=== PATIENT | male | born 1940 | race Caucasian/White ===

== ENCOUNTER 2017-04-15 10:36 | Outpatient (CLI) | payer MEDICARE, OTHER ==
[~2017-04-15] VITALS: Ht 175.3 cm; Wt 81.8 kg
--- NOTE | ~2017-04-15 | HEMODYNAMI ---
PATIENT:RADHA SOLITARIO MEDICAL RECORD: [id number] : 38 LOCATION:[facility] ADMISSION DATE: 04/15/17 Generatedon:04/15/201714:23 Patient name: RADHA SOLITARIO Patient #: [id number] SSN: : Date of study: 04/15/2017 Page: Of Hemodynamic Procedure Report Patient Data Patient Demographics Procedure consent was obtained First Name: RADHA Gender: Male Last Name: KASSI : 1940 [facility] Initial: BABAK Age: 77 year(s) Patient #: [id number] Race: Unknown Additional ID: [id number] Contact details [address]: [address] [place] [address] State: [place] City: [place] Zip code: [address] Past Medical History Allergies Allergen Reaction Date Comments Reported Other allergy 04/15/2017 Iodine Admission Admission Data Admission Date: 04/15/2017 Admission Time: 10:36 Admit Source: Other Lab Results Lab Result Date: 04/15/2017 Lab Result Time: 11:20 Biochemistry Name Units Result Min Max BUN mg/dl 22 --(----)-* 7 18 Creatinine mg/dl 2 --(----)-* 0.6 1.3 CBC Name Units Result Min Max Hematocrit % 46.1 --(-*--)-- 42 54 Hemoglobin g/dl 15.7 --(--*-)-- 13.5 17.5 Procedure Procedure Types Cath Procedure Diagnostic Procedure C LH w/Coronaries PCI Procedure Coronary Stent Coronary Stent Initial Miscellaneous Procedures Moderate Sedation up to 45 minutes Procedure Description Procedure Date Procedure Date: 04/15/2017 Procedure Start Time: 13:45 Procedure End Time: 14:18 Procedure Staff Name Function Steven Hoffmann MD Performing Physician Tam Myers RT Monitor Seda Enamorado RT Scrub Gabriel Mcneill RN Nurse Procedure Data Cath Procedure Fluoroscopy Diagnostic fluoroscopy Total fluoroscopy Time: 8.8 time: 8.8 min min Diagnostic fluoroscopy Total fluoroscopy dose: 800 dose: 800 mGy mGy Contrast Material Contrast Material Type Amount (ml) Isovue 300 133 Entry Location Entry Primary Successful Side Size Upsize Upsize Entry Closure Mendes ccessful Closure Location (Fr) 1 (Fr) 2 (Fr) Remarks Device Remarks Radial Right Mechanical artery Compression Femoral Right 5 Fr 6 Fr Exoseal artery Short Estimated blood loss: 10 ml Diagnostic catheters Device Type Used For End Catheter Placement DIAGNOSTIC Jayden 110cm Procedure 5Fr catheter ([id number]) MULTIPACK JL 4.0 5Fr Procedure catheter DIAGNOSTIC JL 5 5Fr Procedure catheter ([id number]) MULTIPACK 3DRC 5Fr Procedure catheter MULTIPACK Pigtail 5 Fr Procedure catheter Procedure Complications No complications Procedure Medications Medication Administration Route Dosage 0.9% NaCl I.V. 150 ml/hr Oxygen NC 2 l/min Heparin Flush Bag added to field 2 bags (1000units/500ml NS) Lidocaine 2% added to field 20 Versed I.V. 2 mg Fentanyl I.V. 100 mcg Radial Cocktail added to field 1 syringe (Verapomil 2mg/Nitro 400mcg/Heparin 1500units) Radial Cocktail I.A. 1 syringe (Verapomil 2mg/Nitro 400mcg/Heparin 1500units) Heparin Bolus I.V. 8200 units Plavix P.O. 600 mg Hemodynamics Rest HGB: 15.7 (g/dl) Heart Rate: 82 (bpm) Pressure Samples Time Site Value (mmHg) Purpose Heart Use Rate(bpm) 14:02 AO 172/95(127) Snapshot 81 Snapshots Pre Cath Intra NCS Post Cath Vital Signs Time Heart Resp SPO2 etCO2 NIBP (mmHg) Rhythm Pain Sedation Rate (ipm) (%) (mmHg) Status Level (bpm) 13:33:45 81 16 99 25.4 185/110(160) NSR 0 (11) 10(A) , No pain 13:38:38 81 15 99 25.4 190/105(162) NSR 0 (11) 10(A) , No pain 13:43:31 69 15 99 26.2 189/106(165) NSR 0 (11) 10(A) , No pain 13:48:16 69 13 98 28.4 142/85(115) NSR 0 (11) 10(A) , No pain 13:52:58 69 16 94 17.2 138/85(103) NSR 0 (11) 9(A) , No pain 13:57:41 78 14 95 23.2 139/90(118) NSR 0 (11) 9(A) , No pain 14:02:21 78 14 94 28.4 141/95(120) NSR 0 (11) 9(A) , No pain 14:07:04 69 16 95 29.2 146/82(131) NSR 0 (11) 9(A) , No pain 14:11:49 69 15 95 17.2 158/94(142) NSR 0 (11) 9(A) , No pain 14:16:36 69 15 97 26.2 143/90(125) NSR 0 (11) 9(A) , No pain Medications Time Medication Route Dose Verified Delivered Reason Note s Effectiveness by by 13:31:31 0.9% NaCl I.V. 150 Gabriel Gabriel Per physician ml/hr Osito Mcneill RN RN 13:31:44 Oxygen NC 2 l/min Gabriel Gabriel Per physician Osito Mcneill RN RN 13:32:18 Heparin Flush added 2 bags Gabriel Gabriel used for Bag to Osito Mcneill procedure (1000units/500ml RN RN NS) 13:32:34 Lidocaine 2% added 20ml Gabriel Gabriel for local to vial Osito Mcneill anesthetic RN RN 13:44:55 Versed I.V. 2 mg Gabriel Gabriel for sedation Osito Mcneill RN RN 13:45:04 Fentanyl I.V. 100 mcg Gabriel Gabriel for sedation Osito Mcneill RN RN 13:45:33 Radial Cocktail added 1 Gabriel Gabriel for (Verapomil to syringe Osito Mcneill vasodilation 2mg/Nitro RN RN 400mcg/Heparin 1500units) 13:47:46 Radial Cocktail I.A. 1 Gabriel Steven for (Verapomil syringe Osito Hoffmann MD vasodilation 2mg/Nitro RN 400mcg/Heparin 1500units) 14:09:16 Heparin Bolus I.V. 8,200 Gabriel Gabriel for units Osito Mcneill anticoagulation RN RN 14:20:18 Plavix P.O. 600 mg Gabriel Gabriel for Osito Mcneill antiplatelet RN RN therapy Procedure Log Time Note 12:54:30 Informed consent obtained and on chart 12:54:35 Admit Source: Other 12:54:59 Diagnostic Cath status Elective 12:55:20 Time tracking: Regular hours 12:55:30 Plan of Care:Hemodynamics will remain stable., Cardiac rhythm will remain stable., Comfort level will be maintained., Respiratory function will remain adequate., Patient/ family verbilizes understanding of procedure., Procedure tolerated without complication., Recovers from procedure without complications.. 12:55:43 H&P Date Dictated: 04/02/2017 Within 30 days and on chart., H&P Addendum completed by physician on day of procedure. (MUST COMPLETE FOR ALL OUTPATIENTS). 13:15:01 Seda Counts RT(R) sent for patient. Start room use. 13:18:40 Lab Result : Hemoglobin 15.7 g/dl 13:18:40 Lab Result : Creatinine 2 mg/dl 13:18:40 Lab Result : BUN 22 mg/dl 13:18:40 Lab Result : Hematocrit 46.1 % 13:23:02 Patient received from Pre/Post Procedure Room to CCL 1 Alert and oriented. Tansferred to table in Supine position. 13:23:03 Warm blankets applied, and panchito hugger turned on for patient comfort. 13:23:04 Correct patient and procedure confirmed by team. 13:23:05 ECG and BP/O2 sat monitors applied to patient. 13:23:06 Pre-procedure instructions explained to patient. 13:23:07 Pre-op teaching completed and patient verbalized understanding. 13:23:13 Family in waiting room. 13:23:16 Patient NPO since Midnight. 13:23:34 Patient allergic to Other allergyIodine 13:31:31 0.9% NaCl 150 ml/hr I.V. was administered by Gabriel Mcneill RN; Per physician; 13:31:44 Oxygen 2 l/min NC was administered by Gabriel Mcneill RN; Per physician; 13:32:18 Heparin Flush Bag (1000units/500ml NS) 2 bags added to field was administered by Gabriel Mcneill RN; used for procedure; 13:32:34 Lidocaine 2% 20ml vial added to field was administered by Gabriel Mcneill RN; for local anesthetic; 13:32:46 Vital chart was started 13:39:12 Baseline sample Acquired. 13:39:21 Rhythm: paced 13:39:28 Is the patient allergic to Iodine/contrast media? Yes. 13:39:30 Is patient on blood thinner?No 13:39:31 Patient diabetic? Yes. 13:39:32 If diabetic: On Metformin? No 13:39:35 Previous problem with sedation/anesthesia? No ? 13:39:36 Snore? Yes 13:39:36 Sleep apnea? No 13:39:37 Deviated septum? No 13:39:38 Opens mouth fully? Yes 13:39:39 Sticks out tongue? Yes 13:39:41 Airway obstruction? No ? 13:39:43 Dentures? Yes in tight 13:39:47 Modified Abad's test Ulnar < 7 seconds 13:39:48 Patient pain scale 0/10 ?. 13:40:12 IV patent on arrival in left wrist with 0.9% NaCl at [facility]. 13:40:14 Lab results completed and on chart. 13:40:16 Right Radial & Right Groin area was prepped with chlora-prep and draped in sterile fashion 13:40:17 Alarms reviewed by R. N. 13:40:17 Sharps counted by scrub and verified by R.N. 13:40:20 Use device set Radial Dx 13:40:22 ACIST Syringe (90418) opened to sterile field. 13:40:23 ACIST Hand Control (78557) opened to sterile field. 13:40:24 ACIST Manifold (65759) opened to sterile field. 13:40:25 Tegaderm 4 x 4 (1626W) opened to sterile field. 13:40:27 Bag Decanter (2001S) opened to sterile field. 13:40:28 Medline Cath Pack ([id number]) opened to sterile field. 13:40:29 MBrace Wrist Support ([id number]) opened to sterile field. 13:40:32 SHEATH 6FR Slender ([id number]) opened to sterile field. 13:40:36 DIAGNOSTIC WIRE .035 260cm J wire (524451) opened to sterile field. 13:40:39 NEEDLE Cook 21G 4cm Radial (I83864) opened to sterile field. 13:40:41 TR BAND Standard (TNE98ATW) opened to sterile field. 13:40:48 Physician arrived 13:40:48 --------ALL STOP TIME OUT------ 13:40:52 Final Timeout: patient, procedure, and site verified with staff and physician. All members of the team are in agreement. 13:41:20 Right Radial & Right Groin site verified by team. 13:41:29 Physical assessment completed. ASA score P 2 - A patient with mild systemic disease as per Steven Hoffmann MD. 13:41:32 Sedation plan: IV Moderate Sedation Medication:Versed, Fentanyl 13:44:55 Versed 2 mg I.V. was administered by Gabriel Mcneill RN; for sedation; 13:45:04 Fentanyl 100 mcg I.V. was administered by Gabriel Mcneill RN; for sedation; 13:45:33 Radial Cocktail (Verapomil 2mg/Nitro 400mcg/Heparin 1500units) 1 syringe added to field was administered by Gabriel Mcneill RN; for vasodilation; 13:45:34 Procedure started. 13:45:34 Full Disclosure recording started 13:45:42 Local anesthetic to right radial artery with Lidocaine 2% by Steven Hoffmann MD.INITIAL ACCESS ONLY 13:47:04 A sheath was inserted into the Right Radial artery 13:47:46 Radial Cocktail (Verapomil 2mg/Nitro 400mcg/Heparin 1500units) 1 syringe I.A. was administered by Steven Hoffmann MD; for vasodilation; 13:48:00 A DIAGNOSTIC Jayden 110cm 5Fr catheter (520734) was advanced over the wire and used for Procedure. 13:50:29 Terumo Super Stiff Angled 260cm glide wire opened to sterile field. 13:50:53 Zero performed for pressure channel P1 13:51:59 glide wire advanced. 13:52:03 Wire removed. 13:52:57 Catheter removed. Moving to femoral approach. 13:53:12 Local anesthetic to right femoral artery with Lidocaine 2% by Steven Hoffmann MD.ADDITIONAL ACCESS 13:53:35 SHEATH 5FR [place] (SFN634) opened to sterile field. 13:53:49 A 5 Fr sheath was inserted into the Right Femoral artery 13:54:47 Use device set Multipack Set 13:54:51 DIAGNOSTIC Multipack 5Fr catheter set (UK5704) opened to sterile field. 13:54:55 A MULTIPACK JL 4.0 5Fr catheter was advanced over the wire and used for Procedure. 13:55:53 Catheter removed. unable to cannulate vessel. 13:56:06 A DIAGNOSTIC JL 5 5Fr catheter (801896G) was advanced over the wire and used for Procedure. 13:57:25 LCA angiography performed. 13:58:15 Catheter exchanged over wire. 13:58:23 A MULTIPACK 3DRC 5Fr catheter was advanced over the wire and used for Procedure. 13:59:45 RCA angiography performed. 14:00:48 Catheter exchanged over wire. 14:00:56 A MULTIPACK Pigtail 5 Fr catheter was advanced over the wire and used for Procedure. 14:02:27 Aortic Root visualized 14:03:22 GUIDE 6FR XBLAD 4.0 catheter ([id number]) opened to sterile field. 14:03:23 SHEATH 6FR [place] (HTH943) opened to sterile field. 14:03:27 INFLATOR Merit BasixCompak (OJ5719) opened to sterile field. 14:03:40 BMW 300cm [place] 2 J wire (2877563U) opened to sterile field. 14:06:33 TUBING High Pressure Extension Tubing ([employer]) (OI3833L) opened to sterile field. 14:07:09 Catheter removed. 14:07:20 GUIDE 6FR XBLAD 4.0 catheter (79146670) opened to sterile field. 14:07:50 Sheath upsized to a 6 Fr Short. 14:08:01 6 Fr xblad 3.5 guide catheter was inserted over the wire 14:09:01 bmw wire advanced. 14:09:16 Heparin Bolus 8,200 units I.V. was administered by Gabriel Mcneill RN; for anticoagulation; 14:09:31 Wire advanced across lesion. 14:13:12 Inflation Number: 1 A INTEGRITY OTW 3.5 X 18 stent ([id number]) was prepped and advanced across the Mid CX. The stent was deployed at 15 ADELA for 0:10 (min:sec). 14:15:01 Stent catheter was removed intact over wire. 14:15:02 Wire removed. 14:15:02 Guide catheter removed. 14:15:10 EXOSEAL 6Fr (EX600) opened to sterile field. 14:15:34 Sheath removed intact; hemostasis achieved with Exoseal to the Right Femoral artery. 14:15:41 Sheath removed intact; hemostasis achieved with Mechanical Compression to the Right Radial artery. 14:15:43 Procedure ended.(Physican Out) 14:15:54 Fluoroscopy time 08.80 minutes. 14:15:59 Fluoroscopy dose: 800 mGy 14:15:59 Flurop Dose total: 800 14:16:03 Contrast amount:Isovue 300 133ml. 14:16:04 Sharps counted by scrub and verified by R.N. 14:16:45 TR band inflated with 12cc of air. 14:16:47 Insertion/operative site no bleeding no hematoma. 14:16:50 Post-op/insertion site Right Femoral artery dressed using a 4 x 4 and Tegaderm. 14:16:54 Post right femoral artery:stable, soft, clean and dry 14:16:56 Post Procedure Pulses reassessed and unchanged 14:16:59 Post-procedure physical assessment completed. ASA score P 2 - A patient with mild systemic disease as per Steven Hoffmann MD. 14:17:02 Post procedure rhythm: unchanged. 14:17:07 Estimated blood loss: 10 ml 14:17:09 Post procedure instruction explained to patient.Patient verbalizes understanding. 14:17:19 Patient needs reinforcement of post procedure teaching. 14:17:49 Procedure type changed to Cath procedure, Diagnostic procedure, LHC, LHC w/Coronaries, PCI procedure, Coronary Stent, Coronary Stent Initial, Miscellaneous Procedures, Moderate Sedation up to 45 minutes 14:18:33 Procedure and supply charges have been captured, reviewed, submitted and are correct. 14:18:36 Procedure Complication : No complications 14:18:38 Vital chart was stopped 14:18:39 See physician's report for complete and final results. 14:18:40 Report given to Pre/Post Procedure Room. 14:18:43 Patient transfered to Pre/Post Procedure Room with Stretcher. 14:18:56 Procedure ended. 14:18:56 Full Disclosure recording stopped 14:19:15 End room use (Document Last) 14:20:18 Plavix 600 mg P.O. was administered by Gabriel Mcneill RN; for antiplatelet therapy; Intervention Summary Intervention Notes Time ActionType Lesion and Equipment Action# Pressure Duration Attributes Used 14:13:12 Place stent Mid CX INTEGRITY 1 15 00:10 OTW 3.5 X 18 stent ([id number]) Device Usage Item Name Manufacture Quantity Catalog Hospital Part Current Minima l Lot# / Number Charge Number Stock Stock Serial# Code ACIST Acist 1 27076 160277 495801 288164 20 Syringe Medical (13944) Systems Inc ACIST Hand Acist 1 01135 416855 644470 580603 5 Control Medical (47530) Systems Inc ACIST Acist 1 92125 110988 836043 840472 5 Manifold Medical (48915) Systems Inc Tegaderm 4 x 3M 1 1626W 823485 473723 994130 5 4 (1626W) Bag Decanter Microtek 1 2002S 774263 81243 437641 5 (2001S) Medical Inc. Medline Cath Cardinal 1 [id number] 773932 28873 596269 5 Union Cast Network Technology ([id number]) MBrace Wrist Advanced 1 140-0250-00 232325 00850 803450 5 Support Vascular (718573614) Dynamics SHEATH 6FR Terumo 1 [id number] 114106 420912 662097 40 Slender ([id number]) DIAGNOSTIC St Won 1 235494 096483 696311 129018 30 WIRE .035 260cm J wire (793457) NEEDLE Arch Therapeutics Medical 1 R40178 603211 682868 357313 5 21G 4cm Radial (N87942) TR BAND Terumo 1 JID89-OFE 800905 932917 651556 40 Standard ([id number]) DIAGNOSTIC Terumo 1 40-5023 835428 851420 316593 5 Jayden 110cm 5Fr catheter (846898) Terumo Super Terumo 1 WU4985 793982 474207 250137 5 Stiff Angled 260cm glide wire SHEATH 5FR Terumo 1 ERP805 822279 448455 505612 40 [place] (AKS648) DIAGNOSTIC Cardinal 1 LU6269 692296 91576 279260 30 Multipack Health 5Fr catheter set (YS6010) MULTIPACK JL Cardinal 1 306977 5 4.0 5Fr Health catheter DIAGNOSTIC Cardinal 1 065052H 282134 242544 316157 5 JL 5 5Fr Health catheter (906432E) MULTIPACK Cardinal 1 091358 5 3DRC 5Fr Health catheter MULTIPACK Cardinal 1 184140 5 Pigtail 5 Fr Health catheter GUIDE 6FR Cardinal 2 13675138 152652 476572 332785 3 XBLAD 4.0 Health catheter (13539271) SHEATH 6FR Terumo 1 YOJ951 024398 791455 670407 40 [place] (QQF322) INFLATOR Merit 1 SD3797 333916 849810 476567 15 Merit Medical BasixCompak (UF3333) BMW 300cm Butler 1 [id number] 173996 608097 606687 5 [place] 2 Vascular J wire (6721414J) TUBING High Merit 1 NP4149H 171491 46876 423700 10 Pressure Medical Extension Tubing (Hoffmann) (IL2026P) INTEGRITY Medtronic 1 [id number] 058339 357546 4 [id number] OTW 3.5 X 18 stent ([id number]) EXOSEAL 6Fr Cardinal 1 EX600 422861 652156 558206 10 (EX600) Health Signature Audit [place] Stage Time Signature Unsigned Intra-Procedure 04/15/2017 Tam Myers 2:23:23 PM RT(R) Signatures Monitor : Tam Myers RT Signature : Date : Time : [address] [address]
[2017-04-15] MEDS ORDERED: OMEPRAZOLE20 M1 PO (11:22)
[2017-04-15] MEDS ORDERED: ZOCOR10 MG PO (11:22)
[2017-04-15] MEDS ORDERED: VOLTAREN25 MG PO (11:23)
[2017-04-15] MEDS ORDERED: PLAQUENIL200 MG PO (11:23)
[2017-04-15] MEDS ORDERED: FLOMAX0.4 MG PO (11:23)
[2017-04-15] MEDS ORDERED: NEURONTIN 300300 MG PO (11:24)
[2017-04-15] MEDS ORDERED: GLIPIZIDE10 MG PO (11:24)
[2017-04-15 11:28] LABS: BASOPHILS 0.1 % (0-2); EOSINOPHILS 0.1 % (0-7); HEMATOCRIT 46.1 % (42.0-54.0); HEMOGLOBIN 15.7 g/dL (13.5-17.5); IMMATURE GRANULOCYTES 0.3 % (0-5); LYMPHOCYTES 9.8 % (15-50); MCH 31.7 pg (26.0-34.0); MCHC 34.1 g/dL (31.0-37.0); MCV 93.1 fL (80.0-100.0); MEAN PLATELET VOLUME 11.2 fL (7.4-10.4); NEUTROPHILS 87.7 % (40-80); PLATELET COUNT 177 10x3/uL (130-400); RBC 4.95 10x6/uL (4.20-6.10); RDW 12.9 % (11.5-14.5); WBC 11.8 10x3/uL (4.8-10.8)
[2017-04-15 11:31] VITALS: BP 176/93; Ht 175.3 cm; Wt 81.8 kg
[2017-04-15 11:46] LABS: ANION GAP 14.5 mmol/L (8-16); CALCIUM 9.5 mg/dL (8.5-10.1); CARBON DIOXIDE 23.7 mmol/L (21.0-32.0); POTASSIUM - SERUM 4.2 mmol/L (3.5-5.1)
--- NOTE | 2017-04-15 16:56 | NUR ---
1455 LYING FLAT, ROOM AIR WITH NO RESP DISTRESS. NSR RATE 70 W NO C/O CHEST PAIN. PULSES PALP X 4. R WRIST TR BAND C/D/I AND R GROIN 6F EXOSEAL C/D/I W NO HEMATOMA OR BLEEDING. 1630 R GROIN AND R WRIST REMAIN C/D/I W NO HEMATOMA OR BLEEDING. FAMILY AT SIDE.
--- NOTE | 2017-04-15 17:00 | NUR ---
1632 SBP GREATER THAN 180, CALLED DR. BRENNAN. T/O FOR CLONIDINE 0.1MG PO NOW. CLONIDINE GIVEN PER ORDER, WILL MONITOR R EFFECTIVENESS.
--- NOTE | 2017-04-15 17:51 | NUR ---
1730 ELEVATED HOB, WILL MONITOR R GROIN FOR BLEEDING. SITTING UP EATING TURKEY SANDWICH. VIODED 300CC VIA URINAL
--- NOTE | 2017-04-15 18:12 | NUR ---
PIV REMOVED FROM LEFT FOREARM WITH BANDAID APPLIED. 2CC AIR REMOVED FROM R WRIST TR BAND. UP TO BEDSIDE TO DRESS WITH ASSIST FROM .
--- NOTE | 2017-04-15 18:31 | NUR ---
TR BAND WEANED COMPLETELY. TEGADERM AND COTTON BALL APPLIED TO R WRIST. BRACE RE-APPLIED. R GROIN REMAINS C/D/I. DISCUSSED D/C INSTRUCTIONS WITH PATIENT AND DAUGHTER AT BEDSIDE. WHEELED OUT VIA WHEELCHAIR BY CATH TEAM.
== END 2017-04-15 18:33 | disposition home or self-care (01) ==
LOC: D.CATH 10:36
PROVIDERS: Internal Medicine Cardiovascular Disease
DX: I25.119 Atherosclerotic heart disease of native coronary artery with unspecified angina pectoris (principal); R94.39 Abnormal result of other cardiovascular function study; I35.1 Nonrheumatic aortic (valve) insufficiency; Z01.812 Encounter for preprocedural laboratory examination

== ENCOUNTER 2018-03-20 06:41 | Outpatient (CLI) | payer MEDICARE, OTHER ==
[~2018-03-20] VITALS: Ht 175.3 cm; Wt 81.8 kg
--- NOTE | ~2018-03-20 | HEMODYNAMI ---
PATIENT:RADHA SOLITARIO MEDICAL RECORD: [id number] : 38 LOCATION:[facility] ADMISSION DATE: 03/20/18 Generatedon:03/20/20189:44 Patient name: RADHA SOLITARIO Patient #: [id number] SSN: : Date of study: 03/20/2018 Page: Of Hemodynamic Procedure Report Patient Data Patient Demographics Procedure consent was obtained First Name: RADHA Gender: Male Last Name: KASSI : 1940 [facility] Initial: BABAK Age: 78 year(s) Patient #: [id number] Race: Unknown Additional ID: [id number] Contact details [address]: [address] [place] [address] State: [place] City: [place] Zip code: [address] Past Medical History Allergies Allergen Reaction Date Comments Reported Other allergy 04/15/2017 Iodine Admission Admission Data Admission Date: 03/20/2018 Admission Time: 6:41 Procedure Procedure Types Cath Procedure Diagnostic Procedure LHC LHC w/Coronaries Sedation Charges Moderate Sedation up to 15 minutes PCI Procedure Coronary Stent Coronary Stent Initial Procedure Description Procedure Date Procedure Date: 03/20/2018 Procedure Start Time: 9:04 Procedure End Time: 9:37 Procedure Staff Name Function Steven Kwan MD Performing Physician Kiana Adam RN Nurse Mercy Altman RT Monitor Bouchra Martinez RT Scrub Brent Hare RN Boarder Machine Procedure Data Cath Procedure Fluoroscopy Diagnostic fluoroscopy Total fluoroscopy Time: 9.7 time: 9.7 min min Diagnostic fluoroscopy Total fluoroscopy dose: dose: 1969 mGy 1969 mGy Contrast Material Contrast Material Type Amount (ml) Isovue 300 137 Entry Location Entry Primary Successful Side Size Upsize Upsize Entry Closure Succes sful Closure Location (Fr) 1 (Fr) 2 (Fr) Remarks Device Remarks Femoral Right 5 Fr 6 Fr Exoseal artery Short Estimated blood loss: 5 ml Diagnostic catheters Device Type Used For End Catheter Placement MULTIPACK JL 4.0 5Fr Left Coronary catheter Angiography MULTIPACK 3DRC 5Fr Right Coronary catheter Angiography MULTIPACK Pigtail 5 Fr LV Angiography catheter Procedure Complications No complications Procedure Medications Medication Administration Route Dosage Oxygen etCO2 Nasal cannula 2 l/min Lidocaine 2% added to field 20 Heparin Flush Bag added to field 2 bags (1000units/500ml NS) 0.9% NaCl I.V. 150 ml/hr Versed I.V. 2 mg Fentanyl I.V. 100 mcg Versed I.V. 0.5 mg Fentanyl I.V. 25 mcg Heparin Bolus I.V. 8000 units Nitroglycerin IC/IA I.C. 100 mcg Versed I.V. 0.5 mg Fentanyl I.V. 25 mcg Plavix P.O. 600 mg Hemodynamics Rest Heart Rate: 72 (bpm) Snapshots Pre Cath Intra NCS Post Cath Vital Signs Time Heart Resp SPO2 etCO2 NIBP (mmHg) Rhythm Pain Sedation Rate (ipm) (%) (mmHg) Status Level (bpm) 8:55:39 73 17 97 26.4 184/112(158) Paced 0 (11) 10(A) , No pain 9:00:04 71 19 94 26.4 175/99(150) Paced 0 (11) 10(A) , No pain 9:04:26 69 15 95 34 167/97(137) Paced 0 (11) 10(A) , No pain 9:08:48 70 15 95 36.2 161/87(138) Paced 0 (11) 9(A) , No pain 9:13:08 69 16 95 19.6 156/90(127) Paced 0 (11) 9(A) , No pain 9:17:26 69 14 97 39.2 154/88(130) Paced 0 (11) 9(A) , No pain 9:21:44 69 16 98 42.3 159/89(124) Paced 0 (11) 9(A) , No pain 9:26:02 69 15 96 15.1 149/82(102) Paced 0 (11) 9(A) , No pain 9:30:22 69 14 96 14.3 150/77(111) Paced 0 (11) 9(A) , No pain 9:34:40 69 14 97 12.8 158/85(130) Paced 0 (11) 9(A) , No pain 9:42:19 69 13 96 20.4 156/93(135) Paced 0 (11) 10(A) , No pain Medications Time Medication Route Dose Verified Delivered Reason Notes Effectiveness by by 8:45:40 Oxygen etCO2 2 Buffie Buffie used for Nasal l/min Kia Adam RN procedure cannula 8:53:56 Lidocaine 2% added 20ml Steven Steven for local to vial Shun Kwan MD anesthetic field 8:54:03 0.9% NaCl I.V. 150 Steven Buffie Per physician cr 1.9 ml/hr Shun Adam RN 8:54:03 Heparin Flush added 2 Steven Steven used for Bag to bags Shun Kwan MD procedure (1000units/500ml field NS) 9:02:29 Versed I.V. 2 mg Steven Buffie for sedation Shun Adam RN 9:02:36 Fentanyl I.V. 100 Steven Buffie for sedation mcg Shun Adam RN 9:10:30 Versed I.V. 0.5 Steven Buffie for sedation mg Shun Adam RN 9:10:36 Fentanyl I.V. 25 Steven Buffie for sedation mcg Shun Adam RN 9:21:22 Heparin Bolus I.V. 8000 Steven Buffie for verifi ed units Shun Adam RN anticoagulation with dr kwan 9:35:16 Nitroglycerin I.C. 100 Steven Steven for IC/IA mcg Shun Kwan MD vasodilation 9:35:31 Versed I.V. 0.5 Steven Steven for sedation mg Shun Kwan MD 9:35:36 Fentanyl I.V. 25 Steven Steven for sedation mcg Shun Kwan MD 9:42:09 Plavix P.O. 600 Steven Buffie for mg Shun Adam RN antiplatelet therapy Procedure Log Time Note 8:03:02 Informed consent obtained and on chart 8:45:40 Oxygen 2 l/min etCO2 Nasal cannula was administered by Kiana Adam RN; used for procedure; 8:47:30 Brent Hare RN sent for patient. Start room use. 8:47:31 Time tracking: Regular hours (M-F 7:00 - 5:00) 8:47:36 Plan of Care:Hemodynamics will remain stable., Cardiac rhythm will remain stable., Comfort level will be maintained., Respiratory function will remain adequate., Patient/ family verbilizes understanding of procedure., Procedure tolerated without complication., Recovers from procedure without complications.. 8:48:53 Patient received from Pre/Post Procedure Room to CCL 2 Alert and oriented. Tansferred to table in Supine position. 8:48:54 Warm blankets applied, and panchito hugger turned on for patient comfort. 8:48:55 Correct patient and procedure confirmed by team. 8:48:58 ECG and BP/O2 sat monitors applied to patient. 8:53:56 Lidocaine 2% 20ml vial added to field was administered by Steven Kwan MD; for local anesthetic; 8:54:03 0.9% NaCl 150 ml/hr I.V. was administered by Kiana Adam RN; Per physician; cr 1.9 8:54:03 Heparin Flush Bag (1000units/500ml NS) 2 bags added to field was administered by Steven Kwan MD; used for procedure; 8:54:24 Vital chart was started 8:59:41 Baseline sample Acquired. 8:59:45 Rhythm: paced 8:59:47 Full Disclosure recording started 8:59:50 H&P Date Dictated: 03/20/2018 Within 30 days and on chart., H&P Addendum completed by physician on day of procedure. (MUST COMPLETE FOR ALL OUTPATIENTS). 8:59:51 Pre-procedure instructions explained to patient. 8:59:51 Pre-op teaching completed and patient verbalized understanding. 8:59:53 Family in waiting room. 8:59:56 Patient NPO since Midnight. 8:59:57 Is the patient allergic to Iodine/contrast media? Yes. 8:59:58 Was the patient premedicated? Yes 9:00:07 Is patient on blood thinner?Yes 9:00:10 ACC The patient was administered the following blood thiners within the last 24 hours: ACCAspirin 9:00:12 Patient diabetic? No. 9:00:14 Previous problem with sedation/anesthesia? No ? 9:00:17 Snore? Yes 9:00:18 Sleep apnea? No 9:00:19 Deviated septum? No 9:00:19 Opens mouth fully? Yes 9:00:20 Sticks out tongue? Yes 9:00:21 Airway obstruction? No ? 9:00:24 Dentures? No ? 9:00:28 Pre procedure: right dorsailis pedis pulse 1+ Palpable, but thready & weak; easily obliterated 9:00:39 Patient pain scale 0/10 ?. 9:00:44 IV patent on arrival in left forearm with 0.9% NaCl at KVO. 9:00:46 Lab results completed and on chart. 9:00:50 Right groin area was prepped with chlora-prep and draped in sterile fashion 9:00:51 Alarms reviewed by R. N. 9:00:51 Sharps counted by scrub and verified by R.N. 9:00:53 --------ALL STOP TIME OUT------ 9:00:53 Final Timeout: patient, procedure, and site verified with staff and physician. All members of the team are in agreement. 9:00:55 Right groin site verified by team. 9:00:57 Physical assessment completed. ASA score P 2 - A patient with mild systemic disease as per Steven Kwan MD. 9:01:01 Sedation plan: IV Moderate Sedation Medication:Versed, Fentanyl 9:01:14 Use device set Femoral Dx 9:01:15 ACIST Syringe (46768) opened to sterile field. 9:01:15 Bag Decanter (2002S) opened to sterile field. 9:01:16 Medline Cath Pack ([id number]) opened to sterile field. 9:01:16 DIAGNOSTIC WIRE .035 260cm J wire (613959) opened to sterile field. 9:01:17 ACIST Hand Control (48546) opened to sterile field. 9:01:18 ACIST Manifold (50158) opened to sterile field. 9:01:18 DIAGNOSTIC Multipack 5Fr catheter set (OW6706) opened to sterile field. 9:01:19 Tegaderm 4 x 4 (1626W) opened to sterile field. 9:01:21 SHEATH 5FR [place] (GXA913) opened to sterile field. 9:01:48 Procedure started. 9:02:29 Versed 2 mg I.V. was administered by Kiana Adam RN; for sedation; 9:02:36 Fentanyl 100 mcg I.V. was administered by Kiana Adam RN; for sedation; 9:04:17 Local anesthetic to right femoral artery with Lidocaine 2% by Steven Kwan MD.INITIAL ACCESS ONLY 9:04:20 Zero performed for pressure channel P1 9:05:24 Zero performed for pressure channel P1 9:05:45 A 5 Fr sheath was inserted into the Right Femoral artery 9:06:49 A MULTIPACK JL 4.0 5Fr catheter was advanced over the wire and used for Left Coronary Angiography. 9:07:12 LCA angiography performed. 9:07:15 Injector settings: Ml/sec: 3, Volume: 6, 9:09:36 Catheter removed. 9:10:18 A MULTIPACK 3DRC 5Fr catheter was advanced over the wire and used for Right Coronary Angiography. 9:10:30 Versed 0.5 mg I.V. was administered by Kiana Adam RN; for sedation; 9:10:36 Fentanyl 25 mcg I.V. was administered by Kiana Adam RN; for sedation; 9:11:05 RCA angiography performed. 9:11:08 Injector settings: Ml/sec: 3, Volume: 6, 9:11:10 Catheter removed. 9:11:14 A MULTIPACK Pigtail 5 Fr catheter was advanced over the wire and used for LV Angiography. 9:13:59 Aortic Root visualized 9:16:07 Catheter removed. 9:16:09 Proceeding to intervention. 9:16:48 SHEATH 6FR [place] (MBU056) opened to sterile field. 9:16:49 INFLATOR Merit BasixCompak (DU3571) opened to sterile field. 9:16:50 BMW 300cm [place] 2 J wire ([id number]) opened to sterile field. 9:17:18 GUIDE 6FR XBLAD 3.5 catheter ([id number]) opened to sterile field. 9:17:19 TUBING High Pressure Extension Tubing (Shun) ([id number]) opened to sterile field. 9:18:22 Sheath upsized to a 6 Fr Short. 9:18:28 6 Fr xblad 3.5 guide catheter was inserted over the wire 9:18:34 bmw wire advanced. 9:21:22 Heparin Bolus 8000 units I.V. was administered by Kiana Adam RN; for anticoagulation; verified with dr kwan 9:24:28 Wire advanced across lesion. 9:25:46 Place stent Inflation Number: 1 A INTEGRITY OTW 3.0 X 12 stent ([id number]) was prepped and advanced across the Mid LAD. The stent was deployed at 14 ADELA for 0:10 (min:sec). 9:28:25 Stent catheter was removed intact over wire. 9:32:11 Place stent Inflation Number: 2 A INTEGRITY OTW 3.5 X 15 stent ([id number]) was prepped and advanced across the Mid LAD. The stent was deployed at 12 ADELA for 0:10 (min:sec). 9:35:16 Nitroglycerin IC/IA 100 mcg I.C. was administered by Steven Kwan MD; for vasodilation; 9:35:31 Versed 0.5 mg I.V. was administered by Steven Kwan MD; for sedation; 9:35:36 Fentanyl 25 mcg I.V. was administered by Steven Kwan MD; for sedation; 9:36:20 Stent catheter was removed intact over wire. 9:36:21 Wire removed. 9:36:21 Guide catheter removed. 9:36:30 EXOSEAL 6Fr (EX600) opened to sterile field. 9:36:41 Sheath removed intact; hemostasis achieved with Exoseal to the Right Femoral artery. 9:36:43 Procedure ended.(Physican Out) 9:36:55 Fluoroscopy time 09.70 minutes. 9:36:59 Flurop Dose total: 1968 9:36:59 Fluoroscopy dose: 1969 mGy 9:37:02 Contrast amount:Isovue 300 137ml. 9:37:04 Sharps counted by scrub and verified by R.N. 9:37:05 Insertion/operative site no bleeding no hematoma. 9:37:08 Post-op/insertion site Right Femoral artery dressed using a 4 x 4 and Tegaderm. 9:37:10 Post right femoral artery:stable 9:37:12 Post Procedure Pulses reassessed and unchanged 9:37:14 Post procedure rhythm: unchanged. 9:37:16 Estimated blood loss: 5 ml 9:37:18 Post procedure instruction explained to patient.Patient verbalizes understanding. 9:37:18 Patient needs reinforcement of post procedure teaching. 9:37:31 Procedure type changed to Cath procedure, Diagnostic procedure, LHC, LHC w/Coronaries, Sedation Charges, Moderate Sedation up to 15 minutes, PCI procedure, Coronary Stent, Coronary Stent Initial 9:37:32 Procedure and supply charges have been captured, reviewed, submitted and are correct. 9:37:36 Procedure Complication : No complications 9:37:38 Vital chart was stopped 9:37:38 See physician's report for complete and final results. 9:37:40 Report given to Pre/Post Procedure Room. 9:37:45 Patient transfered to Pre/Post Procedure Room with Stretcher. 9:37:47 Procedure ended. 9:37:47 Full Disclosure recording stopped 9:37:54 ACC-PCI Only Patient was given prescriptions, or instructed by Steven Kwan MD to start/continue the following medications upon discharge: Plavix 9:37:56 End room use (Document Last) 9:42:09 Plavix 600 mg P.O. was administered by Kiana Adam RN; for antiplatelet therapy; Intervention Summary Intervention Notes Time ActionType Lesion and Equipment Action# Pressure Duration Attributes Used 9:25:46 Place stent Mid LAD INTEGRITY 1 14 00:10 OTW 3.0 X 12 stent ([id number]) 9:32:11 Place stent Mid LAD INTEGRITY 2 12 00:10 OTW 3.5 X 15 stent ([id number]) Device Usage Item Name Manufacture Quantity Catalog Hospital Part Current Minimal L ot# / Number Charge Number Stock Stock Serial# Code ACIST Acist 1 82282 820997 525977 840754 20 Syringe Medical (79426) Systems Inc Bag Microtek 1 2001S 105824 58853 431701 5 Decanter Medical Inc. () Medline Medline 1 [id number] 962657 46423 086553 5 Cath Pack ([id number]) DIAGNOSTIC St Won 1 602416 014716 998221 982105 30 WIRE .035 260cm J wire (276367) ACIST Hand Acist 1 94434 731478 558907 097008 5 Control Medical (79653) Systems Inc ACIST Acist 1 23340 197892 894920 876918 5 Manifold Medical (55359) Systems Inc DIAGNOSTIC Cardinal 1 VM2568 426559 09417 772444 30 Multipack Health 5Fr catheter set (KL3100) Tegaderm 4 3M 1 1626W 270612 566951 365800 5 x 4 (1626W) SHEATH 5FR Terumo 1 FKK081 067613 904382 200058 40 [place] (JFM793) MULTIPACK Cardinal 1 750735 5 JL 4.0 5Fr Health catheter MULTIPACK Cardinal 1 053043 5 3DRC 5Fr Health catheter MULTIPACK Cardinal 1 614504 5 Pigtail 5 Health Fr catheter SHEATH 6FR Terumo 1 RPD805 721778 121219 372848 40 [place] (LHM404) INFLATOR Merit 1 TK9034 603951 274193 467370 15 Merit Medical BasixCompak (MH0209) BMW 300cm Butler 1 [id number] 064211 327158 206038 5 [place] 2 Vascular J wire ([id number]) GUIDE 6FR Cardinal 1 37853191 488961 455694 596255 10 XBLAD 3.5 Health catheter (99853028) TUBING High Merit 1 [id number] 170329 21236 855163 10 Pressure Medical Extension Tubing (Kwan) (BM9684A) INTEGRITY Medtronic 1 [id number] 546741 753335 1 0 [id number] OTW 3.0 X 12 stent ([id number]) INTEGRITY Medtronic 1 [id number] 136246 609919 1 0 [id number] OTW 3.5 X 15 stent ([id number]) EXOSEAL 6Fr Cardinal 1 EX600 680342 528149 030255 10 (EX600) Health Signature Audit [place] Stage Time Signature Unsigned Intra-Procedure 03/20/2018 Bouchra Martinez 9:44:11 AM RT(R) Signatures Monitor : Mercy Altman Signature : RT Date : Time : [facility] [address] [place] [address]
[~2018-03-20 06:41] MED LIST: FLOMAX0.4 MG PO; GLIPIZIDE10 MG PO; NEURONTIN 300300 MG PO; OMEPRAZOLE20 M1 PO; PLAQUENIL200 MG PO; VOLTAREN25 MG PO; ZOCOR10 MG PO
[2018-03-20] MEDS ORDERED: VOLTAREN25 MG PO (07:18)
[2018-03-20 07:31] VITALS: BP 162/97; Ht 175.3 cm; Wt 81.8 kg
[2018-03-20 07:51] LABS: ANION GAP 14.2 mmol/L (8-16); CALCIUM 9.2 mg/dL (8.5-10.1); CARBON DIOXIDE 23.5 mmol/L (21.0-32.0); CREATININE - SERUM 1.9 mg/dL (0.6-1.3); POTASSIUM - SERUM 4.7 mmol/L (3.5-5.1)
[2018-03-20 07:54] LABS: BASOPHILS 0.1 % (0-2); EOSINOPHILS 0.1 % (0-7); HEMATOCRIT 49.2 % (42.0-54.0); HEMOGLOBIN 16.4 g/dL (13.5-17.5); IMMATURE GRANULOCYTES 0.3 % (0-5); LYMPHOCYTES 11.8 % (15-50); MCH 28.9 pg (26.0-34.0); MCHC 33.3 g/dL (31.0-37.0); MCV 86.8 fL (80.0-100.0); MEAN PLATELET VOLUME 11.5 fL (7.4-10.4); MONOCYTES 1.5 % (2-11); NEUTROPHILS 86.2 % (40-80); PLATELET COUNT 189 10x3/uL (130-400); RBC 5.67 10x6/uL (4.20-6.10); RDW 16.3 % (11.5-14.5); WBC 9.3 10x3/uL (4.8-10.8)
== END 2018-03-20 14:30 ==
LOC: D.CATH 06:41
PROVIDERS: Internal Medicine Cardiovascular Disease
DX: I25.119 Atherosclerotic heart disease of native coronary artery with unspecified angina pectoris (principal); I77.811 Abdominal aortic ectasia; Z01.812 Encounter for preprocedural laboratory examination

== ENCOUNTER 2018-08-12 10:56 | Outpatient (CLI) | payer MEDICARE, OTHER ==
[~2018-08-12] VITALS: Ht 175.3 cm; Wt 81.8 kg
--- NOTE | ~2018-08-12 | HEMODYNAMI ---
PATIENT:RADHA SOLITARIO MEDICAL RECORD: [id number] : 38 LOCATION:[facility] ADMISSION DATE: 08/12/18 Generatedon:08/12/201815:58 Patient name: RADHA SOLITARIO Patient #: [id number] SSN: : Date of study: 08/12/2018 Page: Of Hemodynamic Procedure Report Patient Data Patient Demographics Procedure consent was obtained First Name: RADHA Gender: Male Last Name: KASSI : 1940 [facility] Initial: BABAK Age: 78 year(s) Patient #: [id number] Race: Unknown Additional ID: [id number] Contact details Address: [address] [place] [address] State: [place] City: [place] Zip code: [address] Past Medical History Allergies Allergen Reaction Date Comments Reported Other allergy 04/15/2017 Iodine Admission Admission Data Admission Date: 08/12/2018 Admission Time: 10:56 Admit Source: Other Insurance Payor: Medicare Height (in.): 69 BSA: 2.02 (m2) Height (cm.): 175.26 BMI: 27.91 (kg/m2) Weight (lbs.): 189 Weight (kg.): 85.73 Procedure Procedure Types Cath Procedure Diagnostic Procedure PPM/ICD Permanent Pacer Generator Exg. Procedure Description Procedure Date Procedure Date: 08/12/2018 Procedure Start Time: 15:36 Procedure Staff Name Function Seda Enamorado RT Scrub Bouchra Martinez RT Monitor Kiana Adam RN Nurse Den Feliciano MD Performing Physician Ten Pruitt MD Assisting physician Procedure Data Cath Procedure Fluoroscopy Diagnostic fluoroscopy Total fluoroscopy Time: 0 time: 0 min min Diagnostic fluoroscopy Total fluoroscopy dose: 0 dose: 0 mGy mGy Contrast Material Contrast Material Type Amount (ml) Isovue 300 0 Estimated blood loss: 5 ml Procedure Complications No complications Procedure Medications Medication Administration Route Dosage Oxygen etCO2 Nasal cannula 2 l/min Lidocaine 2% added to field 20 Ancef (1Gm/50ml NS) I.V.P.B 1 g Ancef Irrigation Topical 1 g (1gm/500ml NS) Versed I.V. 1 mg Fentanyl I.V. 50 mcg Versed I.V. 1 mg Fentanyl I.V. 50 mcg Hemodynamics Rest BSA: 2.02 (m2) O2 Consumption: Estimated: 239.05 (ml/min) O2 Consumption indexed : Estimated:118.34 (ml/min/m) Heart Rate: 81 (bpm) Snapshots Pre Cath Intra NCS Post Cath Vital Signs Time Heart Resp SPO2 etCO2 NIBP (mmHg) Rhythm Pain Sedation Rate (ipm) (%) (mmHg) Status Level (bpm) 14:52:08 78 16 96 0 176/101(148) Paced 0 (11) 10(A) , No pain 14:56:43 76 14 97 0 190/101(148) Paced 0 (11) 10(A) , No pain 15:01:21 70 16 96 0 185/96(153) Paced 0 (11) 10(A) , No pain 15:05:56 78 10 94 0 166/90(133) Paced 0 (11) 10(A) , No pain 15:10:24 72 13 98 0 171/95(140) Paced 0 (11) 10(A) , No pain 15:14:48 69 12 98 0 165/96(128) Paced 0 (11) 10(A) , No pain 15:19:17 69 13 99 0 168/96(140) Paced 0 (11) 10(A) , No pain 15:23:47 69 13 99 0 175/102(145) Paced 0 (11) 10(A) , No pain 15:28:19 69 19 94 0 163/93(129) Paced 0 (11) 10(A) , No pain 15:32:42 69 19 98 0 156/93(126) Paced 0 (11) 10(A) , No pain 15:37:10 300 10 95 0 136/88(112) Paced 0 (11) 10(A) , No pain 15:42:25 57 15 93 0 135/93(114) Paced 0 (11) 10(A) , No pain 15:47:39 66 14 94 0 160/97(136) Paced 0 (11) 9(A) , No pain 15:52:07 69 15 94 0 162/95(127) Paced 0 (11) 10(A) , No pain Medications Time Medication Route Dose Verified Delivered Reason Notes Effectiv eness by by 14:51:52 Oxygen etCO2 2 Den Kiana used for Nasal l/min JodieMassimo Adam RN procedure cannula 14:52:02 Lidocaine added 20ml Ten Caal for local 2% to vial Edmond Pruitt MD anesthetic field 14:52:18 Ancef I.V.P.B 1 g Ten Bruno used for (1Gm/50ml Edmond Adam RN procedure NS) 14:52:27 Ancef Topical 1 g Ten Caal used for Irrigation Edmond Pruitt MD procedure (1gm/500ml NS) 15:33:20 Fentanyl I.V. 50 Ten Bruno for mcg Edmond Adam RN sedation 15:33:33 Versed I.V. 1 mg Ten Bruno for Edmond Adam RN sedation 15:41:27 Versed I.V. 1 mg Ten Bruno for Edmond Adam RN sedation 15:41:31 Fentanyl I.V. 50 Ten Bruno for [facility] Edmond Adam RN sedation Procedure Log Time Note 14:37:25 Time tracking: Regular hours (M-F 7:00 - 5:00) 14:37:29 Plan of Care:Hemodynamics will remain stable., Cardiac rhythm will remain stable., Comfort level will be maintained., Respiratory function will remain adequate., Patient/ family verbilizes understanding of procedure., Procedure tolerated without complication., Recovers from procedure without complications.. 14:37:39 Seda Counts RT(R) sent for patient. Start room use. 14:42:48 Patient received from Pre/Post Procedure Room to CCL 3 Alert and oriented. Tansferred to table in Supine position. 14:42:50 Warm blankets applied, and panchito hugger turned on for patient comfort. 14:42:51 Correct patient and procedure confirmed by team. 14:42:52 Signed procedure consent form obtained from patient. 14:42:53 ECG and BP/O2 sat monitors applied to patient. 14:50:43 Vital chart was started 14:50:44 Baseline sample Acquired. 14:50:47 Rhythm: paced 14:50:49 Full Disclosure recording started 14:50:53 H&P Date Dictated: 08/12/2018 Within 30 days and on chart., H&P Addendum completed by physician on day of procedure. (MUST COMPLETE FOR ALL OUTPATIENTS). 14:50:54 Pre-procedure instructions explained to patient. 14:50:55 Pre-op teaching completed and patient verbalized understanding. 14:50:56 Family in waiting room. 14:50:57 Patient NPO since Midnight. 14:51:00 Is the patient allergic to Iodine/contrast media? Yes. 14:51:01 Was the patient premedicated? No 14:51:03 Is patient on blood thinner?No 14:51:04 Patient diabetic? Yes. 14:51:11 If diabetic: On Metformin? No 14:51:13 Previous problem with sedation/anesthesia? No ? 14:51:15 Snore? Yes 14:51:16 Sleep apnea? No 14:51:17 Deviated septum? No 14:51:18 Sticks out tongue? Yes 14:51:18 Opens mouth fully? Yes 14:51:21 Airway obstruction? No ? 14:51:23 Dentures? No ? 14:51:50 Pre procedure: right dorsailis pedis pulse 2+ Normal; easily identifiable; not easily obliterated 14:51:52 Pre procedure: left dorsailis pedis pulse 2+ Normal; easily identifiable; not easily obliterated 14:51:52 Oxygen 2 l/min etCO2 Nasal cannula was administered by Kiana Adam RN; used for procedure; 14:51:57 IV patent on arrival in left forearm with 0.9% NaCl at [facility]. 14:51:59 Lab results completed and on chart. 14:52:02 Lidocaine 2% 20ml vial added to field was administered by Ten Pruitt MD; for local anesthetic; 14:52:08 Left chest area was prepped with chlora-prep and draped in sterile fashion 14:52:09 Sharps counted by scrub and verified by R.N. 14:52:09 Alarms reviewed by R. N. 14:52:18 Ancef (1Gm/50ml NS) 1 g I.V.P.B was administered by Kiana Adam RN; used for procedure; 14:52:27 Ancef Irrigation (1gm/500ml NS) 1 g Topical was administered by Ten Pruitt MD; used for procedure; 14:54:00 Admit Source: Other 14:54:09 Patient Height : 69 inches 14:54:17 Patient Weight : 189 lbs 14:54:17 Insurance Payor : Medicare 14:59:13 Physician paged 15:32:13 Physician arrived 15:32:14 Final Timeout: patient, procedure, and site verified with staff and physician. All members of the team are in agreement. 15:32:14 --------ALL STOP TIME OUT------ 15:32:26 Left chest site verified by team. 15:32:32 Maximum allowable Isovue 300 dose 300ml. Physician notified. (300ml for normal creatinines. For patients with creatinine of 1.7 or higher multiply weight(kg) x 5 divided by creatinine.) 15:32:37 Fire Safety Assessment: C--Open oxygen or nitrous oxide is being used., D--An ESU, laser, or fiber-optic light is being used. 15:32:40 Physical assessment completed. ASA score P 2 - A patient with mild systemic disease as per Den Feliciano MD. 15:32:44 Sedation plan: IV Moderate Sedation Medication:Versed, Fentanyl 15:33:20 Fentanyl 50 mcg I.V. was administered by Kiana Adam RN; for sedation; 15:33:33 Versed 1 mg I.V. was administered by Kiana Adam RN; for sedation; 15:34:16 Procedure started. 15:35:35 [employer] senior human resources representative Sergio Jiang present for procedure. 15:35:59 Pre sharps counted by scrub and verified by RN: Sutures: 7; Sponges: 5; Stick needles: 2; Skin needles: 2; Blade: 1; Cautery: 1 15:36:02 Grounding pad site Left thigh. 15:36:13 Lidocaine 1% was administered to left subclavicular area by Ten Pruitt MD . 15:36:22 Incision made to left subclavicular area. 15:37:47 Generator pocket made/opened. 15:40:16 PPM Dual was removed.. 15:40:29 PPM Dual was attached to lead(s) and inserted into pocket. 15:40:44 Device pocket was irrigated with Ancef. 15:40:49 Ventricular lead attachment was completed with 2-0 ticron. 15:41:27 Versed 1 mg I.V. was administered by Buffie Adam RN; for sedation; 15:41:31 Fentanyl 50 mcg I.V. was administered by Kiana Adam RN; for sedation; 15:44:48 Atrial lead attachment was completed with 2-0 ticron. 15:44:54 Generator was sutured in place with 2-0 ticron. 15:45:21 Subcutaneous closure was completed with 3-0 vicryl plus. 15:45:28 Skin closure was completed with 5-0 monocryl. 15:45:33 Medtronic ADVISA SR Generator [id number] opened to sterile field. 15:51:58 Lt Chest incision was dressed with Mepilex dressing. 15:53:19 Use device set IRISH PPM 15:53:20 5-0 Monocryl PS2 [id number] opened to sterile field. 15:53:22 Cautery Pushbutton Pencil opened to sterile field. 15:53:22 Cautery Tip Distributor [employer] opened to sterile field. 15:53:24 3-0 Vicryl Single Pack [id number] opened to sterile field. 15:53:25 2-0 Ticron Multipack ([id number]) opened to sterile field. 15:53:30 Mepilex Dressing ([id number]) opened to sterile field. 15:54:25 Vital chart was stopped 15:54:28 Full Disclosure recording stopped 15:56:33 Procedure ended.(Physican Out) 15:56:37 Fluoroscopy time 00.00 minutes. 15:56:40 Fluoroscopy dose: 0 mGy 15:56:40 Flurop Dose total: 0 15:56:44 Contrast amount:Isovue 300 0ml. 15:56:46 Sharps counted by scrub and verified by R.N. 15:56:47 Insertion/operative site no bleeding no hematoma. 15:56:52 Post procedure rhythm: paced 15:56:55 Estimated blood loss: 5 ml 15:56:57 Post procedure instruction explained to patient.Patient verbalizes understanding. 15:56:57 Patient needs reinforcement of post procedure teaching. 15:56:57 Patient needs reinforcement of post procedure teaching. 15:57:15 Procedure and supply charges have been captured, reviewed, submitted and are correct. 15:57:27 Procedure Complication : No complications 15:57:29 See physician's report for complete and final results. 15:57:32 Report given to Pre/Post Procedure Room. 15:57:35 Patient transfered to Pre/Post Procedure Room with Stretcher. 15:57:48 End room use (Document Last) Device Usage Item Name Manufacture Quantity Catalog Hospital Part Current Minimal Lot# / Serial# Number Charge Number Stock Stock Code Medtronic Medtronic 1 [id number] 5 [id number] ADVISA [id number] Generator [id number] 5-0 Monocryl Ethicon 1 [id number] 5 PS2 Y495G Cautery Tip Microtek 1 [id number] [id number] 5 Distributor [employer] Cautery Microtek 1 [id number] [id number] 56814 [id number] 5 Push[employer] Pencil 3-0 Vicryl Ethicon 1 [id number] [id number] [id number] 5 Single Pack [id number] 2-0 Ticron Ethicon 1 [id number] 39129 240814 5 Multipack ([id number]) Mepilex Cardinal 1 [id number] 428056 [id number] 5 D[employer] ([id number]) Signature Audit [place] Stage Time Signature Unsigned Intra-Procedure 08/12/2018 Bouchra Martinez RT(R) 3:54:21 PM RT(R) 08/12/2018 3:56:27 PM Intra-Procedure 08/12/2018 Bouchra Martinez 3:58:47 PM RT(R) Signatures Monitor : Bouchra Martinez RT Signature : Date : Time : [place] [id number] [facility] [place] [address]
[2018-08-12] MEDS ORDERED: SOLIQUA 100 UNIT3 ML SQ (11:20)
[2018-08-12 11:32] VITALS: BP 155/101; Ht 175.3 cm; Wt 81.8 kg
[2018-08-12 11:42] LABS: HEMATOCRIT 46.6 % (42.0-54.0); HEMOGLOBIN 15.8 g/dL (13.5-17.5); MCH 31.7 pg (26.0-34.0); MCHC 33.9 g/dL (31.0-37.0); MCV 93.6 fL (80.0-100.0); MEAN PLATELET VOLUME 11.7 fL (7.4-10.4); RBC 4.98 10x6/uL (4.20-6.10); RDW 13.7 % (11.5-14.5); WBC 8.7 10x3/uL (4.8-10.8)
[2018-08-12 11:51] LABS: PLATELET COUNT 150 10x3/uL (130-400)
[2018-08-12 12:03] LABS: ANION GAP 12.8 mmol/L (8-16); CARBON DIOXIDE 28.5 mmol/L (21.0-32.0); CREATININE - SERUM 1.9 mg/dL (0.6-1.3); POTASSIUM - SERUM 4.3 mmol/L (3.5-5.1)
[2018-08-12 12:04] LABS: APTT 27.3 SECONDS (22.8-39.4); INR 0.98 (0.85-1.17); PROTIME 12.5 SECONDS (11.6-15.0)
[2018-08-12 12:23] LABS: EOSINOPHILS 4 % (0-7); LYMPHOCYTES 22 % (15-50); MONOCYTES 4 % (2-11); NEUTROPHILS 68 % (40-80); PLATELET ESTIMATE NORMAL; PLATELET MORPHOLOGY NORMAL PLT MORPH
--- NOTE | 2018-08-12 13:00 | NUR ---
PT STATES HE FEELS LIKE HIS BLOOD SUGAR IS LOW, HIS DAUGHTER CHECKED AND IT IS [address]. DR. JOHNSON NOTIFIED AND ORDERS RECEIVED.
--- NOTE | 2018-08-12 13:15 | NUR ---
25CC D5 GIVEN IVP PER ORDERS.
--- NOTE | 2018-08-12 13:30 | NUR ---
BLOOD SUGAR RECHECKED IT IS NOW 115, PT STATES FEELS MUCH BETTER NOW.
--- NOTE | 2018-08-12 16:25 | NUR ---
PATIENT AWAKE, EATING SANDWICH AND DRINKING WATER. NO N/V. NO C/O PAIN, NUMBNESS, OR TINGLING. VSS ON ROOM AIR. LEFT SHOULDER DRESSING IS CDI. WILL CONTINUE TO MONITOR.
--- NOTE | 2018-08-12 16:55 | NUR ---
IV REMOVED. VSS ON ROOM AIR. LEFT SHOULDER DRESSING IS CDI, NO S/S OF BLEEDING. EDUCATION REGARDING DISCHARGE INSTRUCTIONS GIVEN TO PATIENT AND FAMILY, BOTH VOICE UNDERSTANDING.
--- NOTE | 2018-08-12 17:00 | NUR ---
PATIENT VOIDED WITHOUT DIFFICULTY. PATIENT TRANSPORTED VIA WHEELCHAIR TO CAR WITH FAMILY DRIVING, ALL BELONGINGS SENT WITH PATIENT.
== END 2018-08-12 17:00 ==
LOC: D.CATH 10:56
PROVIDERS: ATTEND Internal Medicine Interventional Cardiology
DX: Z45.010 Encounter for checking and testing of cardiac pacemaker pulse generator [battery] (principal); Z01.812 Encounter for preprocedural laboratory examination

== ENCOUNTER → 2018-09-10 13:17 | Outpatient (CLI) | payer MEDICARE, OTHER ==
[2018-08-12 11:32] VITALS: BMI 26.6
[~2018-09-10 13:17] MED LIST changes: +SOLIQUA 100 UNIT3 ML SQ
== END | disposition home or self-care (01) ==
LOC: D.HCCARDIO 13:17
PROVIDERS: ATTEND Internal Medicine Cardiovascular Disease
DX: I25.10 Atherosclerotic heart disease of native coronary artery without angina pectoris (principal)

== ENCOUNTER → 2019-10-27 07:57 | Outpatient (CLI) | payer MEDICARE, OTHER ==
[2018-08-12 11:32] VITALS: BMI 26.6
== END | disposition home or self-care (01) ==
LOC: D.HCCECHO 07:57
PROVIDERS: ATTEND Internal Medicine Cardiovascular Disease
DX: I10 Essential (primary) hypertension (principal)